=== PATIENT | male | born 1935 | race Two or more races ===

== ENCOUNTER 2019-01-14 13:09 | Emergency (ER) | payer MEDICAID, MEDICARE, OTHER ==
[~2019-01-14] VITALS: Ht 165.1 cm; Wt 68.0 kg
[~2019-01-14 13:09] MED LIST: AMLODIPINE BES2.5 MG ORAL; AMLODIPINE BESYL5 MG ORAL; ASPIR 8181 MG ORAL; ATORVASTATIN CA10 MG ORAL; CILOSTAZOL100 MG PO; CLOPIDOGREL75 MG ORAL; FERROUS SULFAT325 MG ORAL; FLOMAX0.4 MG ORAL; LOSARTAN POTASS25 MG ORAL; OMEPRAZOLE10 M1 ORAL; RESTASIS1 EACH BOTH EYES; ULTRAM PO; VESICARE5 MG ORAL
--- NOTE | 2019-01-14 13:25 | NUR ---
ED Nurse Note: Pt. AAOx4. Brought in by ambulance from home due to syncopal episode that lasted 20 minutes. Per , pt. was eating lunch and found unresponsive for 20 minutes on his chair. Has hx of stroke before. Pt. came in with 20gauge on the R forearm with 300 cc runnng. Pt was medicated en route with 4mg zofran due to c/o nausea. Pt. denies pain at this time and does not remember what happened prior to ER arrival Addendum: 01/14/19 at 1335 by TASIAO BP on the field was 90/51
--- NOTE | 2019-01-14 13:29 | NUR ---
ED Nurse Note: Xray at the bedside
[2019-01-14 13:43] LABS: BASOPHILS % (AUTO) 0.9 % (0.0-2.0); EOSINOPHILS % (AUTO) 0.3 % (0.0-3.0); HEMOGLOBIN 10.7 G/DL (14.2-18.0); LYMPHOCYTES % (AUTO) 12.4 % (20.0-45.0); MEAN CORPUSCULAR VOLUME 94 FL (80-99); MONOCYTES % (AUTO) 7.8 % (1.0-10.0); NEUTROPHILS % (AUTO) 78.5 % (45.0-75.0); PLATELET COUNT 221 K/UL (150-450); RED CELL DISTRIBUTION WIDTH 12.4 % (11.6-14.8); WHITE BLOOD COUNT 5.4 K/UL (4.8-10.8)
[2019-01-14 13:46] VITALS: BP 130/43
--- NOTE | 2019-01-14 13:47 | Emergency Room Report ---
History of Present Illness General Chief Complaint: Syncope Source: Patient, Family Member, EMS Present Illness HPI 83-year-old male with history of hypertension, old stroke with residual left sided numbness, presents with a syncopal episode, while he was sitting at home, he reportedly became dizzy while eating lunch, and then had an episode of sitting upright and being unresponsive and drooling. Patient then woke up and did not recollect what occurred. There was no fall, no pain complaints, the patient does still feel dizzy and nauseated. Patient never had any symptoms of slurred speech, focal numbness, tingling, weakness. Allergies: Coded Allergies: No Known Allergies (Verified , 10/11/06) Patient History Reviewed Nursing Documentation: PMH: Agreed; PSxH: Agreed Nursing Documentation-PMH Hx Cardiac Problems: Yes Hx Hypertension: Yes Hx Cancer: Yes Hx Gastrointestinal Problems: Yes Hx Neurological Problems: Yes Hx Cerebrovascular Accident: Yes Review of Systems All Other Systems: negative except mentioned in HPI Physical Exam Vital Signs Date Time Temp Pulse Resp B/P (MAP) Pulse Ox O2 Delivery O2 Flow Rate FiO2 01/14/19 13:09 74 16 99 Room Air Sp02 EP Interpretation: reviewed, normal General Appearance: no apparent distress, alert, non-toxic Head: normocephalic Eyes: bilateral eye normal inspection, bilateral eye PERRL, bilateral eye EOMI ENT: normal ENT inspection, hearing grossly normal, normal pharynx, no angioedema, normal voice, moist mucus membranes Neck: normal inspection, full range of motion, supple, supple/symm/no masses Respiratory: chest non-tender, lungs clear, normal breath sounds, chest symmetrical, palpation of chest normal Cardiovascular #1: normal peripheral pulses, regular rate, rhythm Cardiovascular #2: 2+ radial (R), 2+ radial (L) Gastrointestinal: normal inspection, non tender, soft, no mass, no guarding, no rebound Rectal: deferred Genitourinary: normal inspection, no CVA tenderness Musculoskeletal: back normal, normal range of motion, non-tender, no calf tenderness Neurologic: alert, responsive, 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 No recent history of chest pain , no severe headache, no other symptoms and nausea and dizziness with syncopal episode just prior to arrival. Neuro exam unremarkable currently. Dr. Holley at [facility] accepted patient in transfer there for further workup. Patient received aspirin, Zofran, meclizine for dizziness, head CT showed only large old right parieto-occipital infarct and atrophy. Chest x-ray was unremarkable, initial troponin and remainder labs also fairly unremarkable other than slightly elevated BUN/creatinine. EKG Diagnostic Results EKG Time: 13:14 EP Interpretation: no stemi, bifascicular block Rate: normal Rhythm: NSR ST Segments: no acute changes Rhythm Strip Diag. Results Rhythm Strip Time: 13:47 EP Interpretation: yes Rate: 83 Rhythm: NSR, no PVC's, no ectopy Chest X-Ray Diagnostic Results Chest X-Ray Diagnostic Results : Chest X-Ray Ordered: Yes # of Views/Limited/Complete: 1 View Indication: Other - syncope EP Interpretation: Yes Interpretation: no consolidation, no effusion, no pneumothorax, no acute cardiopulmonary disease Impression: No acute disease Electronically Signed by: Christopher Tomlinson MD CT/MRI/US Diagnostic Results CT/MRI/US Diagnostic Results : Imaging Test Ordered: ct head noncontrast Last Vital Signs Date Time Temp Pulse Resp B/P (MAP) Pulse Ox O2 Delivery O2 Flow Rate FiO2 01/14/19 13:09 74 16 99 Room Air Disposition: XFER T-TRM HOSP Condition: Stable CHRISTOPHER TOMLINSON M.D January 14, 2019 13:47
--- NOTE | 2019-01-14 13:49 | NUR ---
ED Nurse Note: Pt taken to CT via [facility]. No acute distress.
[2019-01-14 13:55] LABS: ANION GAP 13 mmol/L (5-15); BLOOD UREA NITROGEN 21 mg/dL (7-18); CALCIUM 8.2 MG/DL (8.5-10.1); CARBON DIOXIDE 20 MMOL/L (21-32); CHLORIDE 105 MMOL/L (98-107); CREATININE 1.8 MG/DL (0.55-1.30); POTASSIUM 4.2 MMOL/L (3.5-5.1); SODIUM 138 MMOL/L (136-145)
--- NOTE | 2019-01-14 13:58 | NUR ---
ED Nurse Note: Pt came back from CT. Attached back to athletic monitor. VSS.
[2019-01-14 14:00] LABS: ALANINE AMINOTRANSFERASE 17 U/L (12-78); ALBUMIN 3.4 G/DL (3.4-5.0); ALKALINE PHOSPHATASE 82 U/L (46-116); ASPARTATE AMINO TRANSFERASE 20 U/L (15-37); BILIRUBIN,TOTAL 0.5 MG/DL (0.2-1.0)
--- NOTE | 2019-01-14 14:20 | Diagnostic Imaging Report ---
Indication: Dizziness Technique: Contiguous 5 mm thick transaxial imaging of the head obtained in a Siemens Sensation [address] scanner. Soft tissue and bone windows generated. Automatic Exposure Control was utilized. Total Dose length Product (DLP): 1379.[address] Dose Index Volume (CTDIvol): 70.38 mGy Comparison: none Findings: There is a large area of encephalomalacia in the right parietal and occipital lobe. This is consistent with an old infarct. Generalized atrophy of the brain is mild to moderate degree with prominence of the sulci ventricles and basal cisterns. Periventricular low-attenuation noted consistent with chronic small vessel disease. IMPRESSION: Large old infarct involving right parietal and occipital regions. Generalized mild to moderate atrophy of the brain Evidence of chronic small vessel disease involving white matter tracts The CT scanner at [facility] is accredited by the [employer] and the scans are performed using dose optimization techniques as appropriate to a performed exam including Automatic Exposure control.
--- NOTE | 2019-01-14 14:21 | Diagnostic Imaging Report ---
Indication: Dyspnea Comparison: None A single view chest radiograph was obtained. Findings: Heart is enlarged. Pulmonary vascularity is mildly prominent. There is no infiltrate. Bones are osteopenic. IMPRESSION: Cardiomegaly
--- NOTE | 2019-01-14 14:45 | NUR ---
ED Nurse Note: Pt and aware of hospital transfer to [facility].
[2019-01-14 15:30] VITALS: BP 120/65
--- NOTE | 2019-01-14 16:11 | NUR ---
ED Nurse Note: Report given to Anamaria ROSE of [facility].
[2019-01-14 17:11] VITALS: BP 134/58
[2019-01-14 17:21] VITALS: BP 134/58
--- NOTE | 2019-01-14 17:21 | NUR ---
ED Nurse Note: Report given to [facility]. Pt is stable for transfer VSS. Belongings sent with patient.
== END 2019-01-14 17:21 | disposition short-term general hospital (02) ==
LOC: EDBD 13:09 → EMR 13:45 → EDBEDREQ 13:50 → EMR 17:21
DX: R55 Syncope and collapse (principal); I10 Essential (primary) hypertension; Z85.9 Personal history of malignant neoplasm, unspecified; G81.94 Hemiplegia, unspecified affecting left nondominant side; I45.2 Bifascicular block; I73.9 Peripheral vascular disease, unspecified; I51.7 Cardiomegaly; M85.80 Other specified disorders of bone density and structure, unspecified site
CPT/HCPCS: 36415; 70450; 71045; 80053; 84484; 85025; 85610; 85730; 93005; 96374; 99284; J2405